=== PATIENT | female | born 2000 | race American Indian/Alaskan Native ===

== ENCOUNTER 2018-06-19 10:06 | Emergency (ER) | payer BC, OTHER ==
[2018-06-19 10:18] VITALS: BP 128/71
[2018-06-19 12:58] LABS: Bacteria,Urine 1+ /HPF (Negative); Bilirubin,Urine NEG (Negative); Blood,Urine MOD (Negative); Color,Urine Yellow (Yellow); Mucus,Urine 3+ /HPF; Protein,Urine <15 mg/dL mg/dL (Negative)
[2018-06-19 12:59] LABS: HCG Qualitative,Urine Negative (Negative)
[2018-06-19] MEDS ORDERED: IBUPROFEN PO ONE (13:03)
[2018-06-19] MEDS ORDERED: BACTRIM DS PO ONE (13:13)
--- NOTE | 2018-06-19 13:18 | Emergency Department Report ---
ED Dysuria HPI - HPI Chief Complaint: Headache Stated Complaint: HEADACHE/LOSS OF APPETITE Time Seen by Provider: 06/19/18 12:37 Duration: 3 Days Severity: Mild Symptoms: Dysuria: No, Frequency: Yes, Suprapubic Pain: No, Flank Pain: No, Fever: No, Hematuria: No, Abdominal Pain: No, Previous UTI's: No Other History: Patient is a 18-year-old -[place] female who comes into the ER today complaining of intermittent headaches off and on for a couple weeks. She also reports a decreased appetite for a couple days. She is ambulatory and nontoxic. She denies any fever. No nausea vomiting or diarrhea. Last menstrual cycle was last week. She is on no medicines and has no allergies. ED Review of Systems ROS: Stated complaint: HEADACHE/LOSS OF APPETITE Other details as noted in HPI Comment: All other systems reviewed and negative Eyes: denies: eye pain ENT: denies: throat pain Respiratory: denies: cough Cardiovascular: denies: chest pain Endocrine: denies: excessive sweating Gastrointestinal: other (decreased appetite). denies: as per HPI, abdominal pain Genitourinary: urgency, other (not concerned for sti; lmp last week). denies: dysuria, frequency, hematuria, discharge, abnormal menses, dyspareunia Musculoskeletal: denies: back pain Skin: denies: lesions Neurological: as per HPI, headache Psychiatric: denies: anxiety Hematological/Lymphatic: denies: easy bleeding ED Past Medical Hx - Past Medical History Previous Medical History?: No - Surgical History Past Surgical History?: No - Social History Smoking Status: Never Smoker Substance Use Type: None - Medications Home Medications: Home Medications Medication Instructions Recorded Confirmed Last Taken Type Sulfamethoxazole/Trimethoprim 1 each PO BID #6 tablet 06/19/18 Unknown Rx [Bactrim Ds Tablet] Dysuria Exam - Exam General: Vital signs noted. No distress. Alert and acting appropriately. Exam: Yes Moist Mucous Membranes, No CVA Tenderness, No Abdominal Tenderness, No Rigidity or Guarding Exam: Patient is alert and oriented 4. Moves all extremities. S1-S2. Lungs clear to auscultation. Abdomen soft and nontender. No CVA tenderness. Labs: Lab Results 06/19/18 Range/Units 12:42 Urine Color Yellow (Yellow) Urine Turbidity Clear (Clear) Urine pH 6.0 (5.0-7.0) Ur Specific [place] 1.023 (1.003-1.030) Urine Protein <15 mg/dl (Negative) mg/dL Urine Glucose (UA) Neg (Negative) mg/dL Urine Ketones 20 (Negative) mg/dL Urine Blood Mod (Negative) Urine Nitrite Neg (Negative) Urine Bilirubin Neg (Negative) Urine Urobilinogen 4.0 (<2.0) mg/dL Ur Leukocyte Esterase Lg (Negative) Urine WBC (Auto) 22.0 H (0.0-6.0) /HPF Urine RBC (Auto) 1.0 (0.0-6.0) /HPF U Epithel Cells (Auto) 6.0 (0-13.0) /HPF Urine Bacteria (Auto) 1+ (Negative) /HPF Urine Mucus 3+ /HPF Urine HCG, Qual Negative (Negative) ED Course Vital Signs 06/19/18 10:12 Temperature 98.5 F Pulse Rate 75 Respiratory 20 Rate Blood Pressure 128/71 O2 Sat by Pulse 100 Oximetry ED Medical Decision Making - Medical Decision Making urine noted no concern for sti has had uti in past pt also reports hx of headaches but they have not lasted this long. no trauma she is listening to her music and playing on her phone no focal neuro def no fever ambulatory medicated dc home with follow up Lab Results 06/19/18 Range/Units 12:42 Urine Color Yellow (Yellow) Urine Turbidity Clear (Clear) Urine pH 6.0 (5.0-7.0) Ur Specific [place] 1.023 (1.003-1.030) Urine Protein <15 mg/dl (Negative) mg/dL Urine Glucose (UA) Neg (Negative) mg/dL Urine Ketones 20 (Negative) mg/dL Urine Blood Mod (Negative) Urine Nitrite Neg (Negative) Urine Bilirubin Neg (Negative) Urine Urobilinogen 4.0 (<2.0) mg/dL Ur Leukocyte Esterase Lg (Negative) Urine WBC (Auto) 22.0 H (0.0-6.0) /HPF Urine RBC (Auto) 1.0 (0.0-6.0) /HPF U Epithel Cells (Auto) 6.0 (0-13.0) /HPF Urine Bacteria (Auto) 1+ (Negative) /HPF Urine Mucus 3+ /HPF Urine HCG, Qual Negative (Negative) - Differential Diagnosis ro Critical care attestation.: If time is entered above; I have spent that time in minutes in the direct care of this critically ill patient, excluding procedure time. ED Disposition Clinical Impression: UTI (urinary tract infection), Headache Disposition: TO HOME OR SELFCARE Is pt being admited?: No Does the pt Need Aspirin: No Condition: Stable Instructions: Urinary Tract Infection in Women (ED), Acute Headache (ED) Additional Instructions: Hydrate well with water. you should be drinking 2 gallons a day. Urinate after sex. Motrin or Tylenol for pain. Take antibiotic as prescribed today Follow-up with PCP when you complete her antibiotics. So that we can be sure the infection is gone away. A referral has been given the low Prescriptions: Sulfamethoxazole/Trimethoprim [Bactrim Ds Tablet] 1 each PO BID #6 tablet Referrals: PRIMARY CAREMD [Primary Care Provider] - 3-5 Days CHACORTA MONTIEL MD [Staff Physician] - 3-5 Days Time of Disposition: 13:16
== END 2018-06-19 13:37 | disposition home or self-care (01) ==
LOC: ED 10:06
DX: N39.0 Urinary tract infection, site not specified (principal); R51 Headache
CPT/HCPCS: 81001; 81025; 99283

== ENCOUNTER 2018-08-30 18:15 | Emergency (ER) | payer BC, OTHER ==
[2018-08-30 18:32] VITALS: BP 129/73
--- NOTE | 2018-08-30 18:32 | Emergency Department Report ---
Blank Doc - Documentation Documentation: This is a 18-year-old female that presents with generalized weakness and dizzi ness. Also has some dry cough. This initial assessment/diagnostic orders/clinical plan/treatment(s) is/are subject to change based on patient's health status, clinical progression and re- assessment by fellow clinical providers in the ED. Further treatment and workup at subsequent clinical providers discretion. Patient/guardians urged not to elope from the ED as their condition may be serious if not clinically assessed and managed. Initial orders include: 1- Patient sent to [facility] for further evaluation and treatment 2- labs 3- CXR
[2018-08-30 19:31] LABS: Basophils % (Auto) 0.3 % (0.0-1.8); Eosinophils % (Auto) 0.4 % (0.0-4.3); Hematocrit 36.1 % (30.3-42.9); Hemoglobin 12.7 gm/dl (10.1-14.3); Lymphocytes # (Auto) 1.8 K/mm3 (1.2-5.4); Mean Corpuscular HGB Conc 35 % (30-34); Mean Corpuscular Volume 89 fl (79-97); Monocytes # (Auto) 0.7 K/mm3 (0.0-0.8); Monocytes % (Auto) 6.8 % (0.0-7.3); Platelet Count 305 K/mm3 (140-440); Red Blood Count 4.06 M/mm3 (3.65-5.03); Red Cell Distribution Width 15.5 % (13.2-15.2)
[2018-08-30 19:47] LABS: BUN/Creatinine Ratio 18; Blood Urea Nitrogen 11 mg/dL (7-17); Hemolysis Index 22
--- NOTE | 2018-08-30 21:48 | XRay Report ---
PROCEDURE: XR CHEST ROUTINE 2V TECHNIQUE: PA and lateral chest radiographs were obtained. HISTORY: cough COMPARISONS: None. FINDINGS: Heart: Normal. Mediastinum/Vessels: Normal. Lungs/Pleural space: Normal. Bony thorax: Moderate degree levoscoliosis is noted. IMPRESSION: No acute abnormality. This document is electronically signed by Adalberto Murphy MD., August 30 2018 09:46:21 PM ET
--- NOTE | 2018-08-30 22:41 | Emergency Department Report ---
- General Chief Complaint: Upper Respiratory Infection Stated Complaint: DIZZY/LIGHTHEADED/WEAK/BODY ACHE Time Seen by Provider: 08/30/18 18:31 Source: patient Mode of arrival: Ambulatory Limitations: No Limitations - History of Present Illness Initial Comments: Pt is a 18 yo female who presents to the ED with c/o chills that began earlier today. She has associated generalized body aches, light-headedness, ROSALES, mild sore throat, rhinorrhea, and congestion. She denies any cough, fever, sick contacts. She states she took tylenol severe cold and flu without much relief. She denies any PMHx. - Related Data Previous Rx's Medication Instructions Recorded Last Taken Type Fluticasone [Flonase] 1 spray NS QDAY #1 bottle 08/30/18 Unknown Rx guaiFENesin [Mucinex] 600 mg PO BID #14 tab.er.12h 08/30/18 Unknown Rx Allergies Allergy/AdvReac Type Severity Reaction Status Date / Time No Known Allergies Allergy Unverified 06/19/18 10:18 ED Review of Systems ROS: Stated complaint: DIZZY/LIGHTHEADED/WEAK/BODY ACHE Other details as noted in HPI Comment: All other systems reviewed and negative ED Past Medical Hx - Past Medical History Previous Medical History?: No - Surgical History Past Surgical History?: No - Social History Smoking Status: Never Smoker Substance Use Type: None - Medications Home Medications: Home Medications Medication Instructions Recorded Confirmed Last Taken Type Fluticasone [Flonase] 1 spray NS QDAY #1 bottle 08/30/18 Unknown Rx guaiFENesin [Mucinex] 600 mg PO BID #14 tab.er.12h 08/30/18 Unknown Rx ED Physical Exam - General Limitations: No Limitations General appearance: alert, in no apparent distress - Head Head exam: Present: atraumatic, normocephalic - Eye Eye exam: Present: normal appearance - ENT ENT exam: Present: normal orophraynx, mucous membranes moist, other (no posterior oropharynx erythema or exudates, mild edema and erythema of the nasal turbinates, no sinus tenderness to papation ) - Neck Neck exam: Present: normal inspection. Absent: tenderness, meningismus - Respiratory Respiratory exam: Present: normal lung sounds bilaterally. Absent: respiratory distress, wheezes, rales, rhonchi, stridor, accessory muscle use, decreased breath sounds, prolonged expiratory - Cardiovascular Cardiovascular Exam: Present: regular rate, normal rhythm, normal heart sounds. Absent: systolic murmur, rubs, gallop - Neurological Exam Neurological exam: Present: alert, oriented X3 - Psychiatric Psychiatric exam: Present: normal affect, normal mood - Skin Skin exam: Present: warm, dry, intact ED Course Vital Signs 08/30/18 18:31 Temperature 98.3 F Pulse Rate 73 Respiratory 18 Rate Blood Pressure 129/73 O2 Sat by Pulse 100 Oximetry ED Medical Decision Making - Lab Data Result diagrams: 08/30/18 19:06 08/30/18 19:06 Lab Results 08/30/18 08/30/18 08/30/18 Range/Units 19:06 19:06 19:06 WBC 10.2 (4.5-11.0) K/mm3 RBC 4.06 (3.65-5.03) M/mm3 Hgb 12.7 (10.1-14.3) gm/dl Hct 36.1 (30.3-42.9) % MCV 89 (79-97) fl MCH 31 (28-32) pg MCHC 35 H (30-34) % RDW 15.5 H (13.2-15.2) % Plt Count 305 (140-440) K/mm3 Lymph % (Auto) 18.0 (13.4-35.0) % [place] % (Auto) 6.8 (0.0-7.3) % Eos % (Auto) 0.4 (0.0-4.3) % Baso % (Auto) 0.3 (0.0-1.8) % Lymph # 1.8 (1.2-5.4) K/mm3 [place] # 0.7 (0.0-0.8) K/mm3 Eos # 0.0 (0.0-0.4) K/mm3 Baso # 0.0 (0.0-0.1) K/mm3 Seg Neutrophils % 74.5 H (40.0-70.0) % Seg Neutrophils # 7.6 (1.8-7.7) K/mm3 Sodium 140 (137-145) mmol/L Potassium 4.1 (3.6-5.0) mmol/L Chloride 101.7 (98-107) mmol/L Carbon Dioxide 27 (22-30) mmol/L Anion Gap 15 mmol/L BUN 11 (7-17) mg/dL Creatinine 0.6 L (0.7-1.2) mg/dL Estimated GFR > 60 ml/min BUN/Creatinine Ratio 18 % Glucose 91 (65-100) mg/dL Calcium 10.0 (8.4-10.2) mg/dL HCG, Qual Negative (Negative) - Radiology Data Radiology results: report reviewed PROCEDURE: XR CHEST ROUTINE 2V TECHNIQUE: PA and lateral chest radiographs were obtained. HISTORY: cough COMPARISONS: None. FINDINGS: Heart: Normal. Mediastinum/Vessels: Normal. Lungs/Pleural space: Normal. Bony thorax: Moderate degree levoscoliosis is noted. IMPRESSION: No acute abnormality. This document is electronically signed by Adalberto Murphy MD., August 30 2018 09:46:21 PM ET - Medical Decision Making Pt is a 18 yo female who presents to the ED with c/o chills that began earlier today. She has associated generalized body aches, light-headedness, ROSALES, mild sore throat, rhinorrhea, and congestion. She denies any cough, fever, sick contacts. She states she took tylenol severe cold and flu without much relief. She denies any PMHx. CXR with no acute process. rapid influenza is negative. VSS. Pt symptoms consistent with URI. Will tx patient symptomatically. Advised to be seen by PCP in the next 2-3 days. Discussed return to the ED for any new or worsening symptoms. - Differential Diagnosis URI, Influenza, Viral syndrome Critical care attestation.: If time is entered above; I have spent that time in minutes in the direct care of this critically ill patient, excluding procedure time. ED Disposition Clinical Impression: Upper respiratory infection Qualifiers: URI type: unspecified URI Qualified Code(s): J06.9 - Acute upper respiratory infection, unspecified Disposition: DC-01 TO HOME OR SELFCARE Is pt being admited?: No Does the pt Need Aspirin: No Condition: Stable Instructions: Upper Respiratory Infection (ED) Additional Instructions: Follow up with your primary care doctor in the next 2-3 days. Take all medication as prescribed. Continue to drink plenty of fluids. Take ibuprofen/tylenol for body aches/headache. Return to the emergency room for any new or worsening symptoms. Prescriptions: Fluticasone [Flonase] 1 spray NS QDAY #1 bottle guaiFENesin [Mucinex] 600 mg PO BID #14 tab.er.12h Referrals: WDAE MEMBRENO MD [Primary Care Provider] - 2-3 Days Forms: Accompanied Note, Work/School Release Form(ED) Time of Disposition: 23:13 Print Language: CONGOLESE
== END 2018-08-30 23:23 | disposition home or self-care (01) ==
LOC: ED 18:15
DX: J06.9 Acute upper respiratory infection, unspecified (principal)
CPT/HCPCS: 36415; 71046; 80048; 84703; 85025; 87400

== ENCOUNTER 2019-03-02 17:04 | Emergency (ER) | payer BC ==
--- NOTE | 2019-03-02 17:30 | Event Note ---
ED Screening Note Date of service: 03/02/19 Time: 17:27 ED Screening Note: This is a 18 y.o. F. that presents to the ER with headache for 4 days. Reports a history of migraines. She have not taken anything for symptomatic relief. This initial assessment/diagnostic orders/clinical plan/treatment(s) is/are subject to change based on patients health status, clinical progression and re- assessment by fellow clinical providers in the ED. Further treatment and workup at subsequent clinical providers discretion. Patient/guardian urged not to elope from the ED as their condition may be serious if not clinically assessed and managed. Initial orders include:
[2019-03-02] MEDS ORDERED: diphenhydrAMINE 50 MG/ML VIAL IV ONE (17:58)
[2019-03-02] MEDS ORDERED: METOCLOPRAMIDE 10 MG/2 ML INJ IV ONE (17:58)
[2019-03-02] MEDS ORDERED: SODIUM CHLORIDE 0.9% 1000 ML 1,000 ML IV ONE (17:58)
[2019-03-02] MEDS ORDERED: KETOROLAC 30 MG/1 ML INJ IV ONE (17:58)
--- NOTE | 2019-03-02 18:54 | Emergency Department Report ---
ED Headache HPI - General Chief Complaint: Headache Stated Complaint: DIZZY/FEVER/HARD TO FOCUS Time Seen by Provider: 03/02/19 17:27 - History of Present Illness Initial Comments: Patient is a 18-year-old female who presents to emergency room with complaints of a frontal headache that began 4 days ago. Patient states she has associated photophobia and lightheadedness when the headache is uncomfortable. She denies any numbness, weakness, vision changes, fever, nausea, vomiting, diarrhea, neck pain, syncope. Patient states she has a history of headaches and usually takes Aleve or ibuprofen and her symptoms resolve after. Patient has not taken anything at all for this headache. She states her last mental cycle was February 10. Allergies/Adverse Reactions: Allergies No Known Allergies Allergy (Unverified 06/19/18 10:18) Home Medications: Ambulatory Orders Fluticasone [Flonase] 1 spray NS QDAY #1 bottle 08/30/18 guaiFENesin [Mucinex] 600 mg PO BID #14 tab.er.12h 08/30/18 Butalb/Acetaminophen/Caffeine [Fioricet 50-300-40 mg CAP] 1 cap PO Q8HR PRN #10 cap 03/02/19 ED Review of Systems ROS: Stated complaint: DIZZY/FEVER/HARD TO FOCUS Other details as noted in HPI Comment: All other systems reviewed and negative ED Past Medical Hx - Past Medical History Previous Medical History?: No - Surgical History Past Surgical History?: No - Social History Smoking Status: Never Smoker Substance Use Type: None - Medications Home Medications: Home Medications Medication Instructions Recorded Confirmed Last Taken Type Fluticasone [Flonase] 1 spray NS QDAY #1 bottle 08/30/18 Unknown Rx guaiFENesin [Mucinex] 600 mg PO BID #14 tab.er.12h 08/30/18 Unknown Rx Butalb/Acetaminophen/Caffeine 1 cap PO Q8HR PRN #10 cap 03/02/19 Unknown Rx [Fioricet 50-300-40 mg CAP] ED Physical Exam - General Limitations: No Limitations General appearance: alert, in no apparent distress - Head Head exam: Present: atraumatic, normocephalic - Eye Eye exam: Present: normal appearance, PERRL, EOMI. Absent: nystagmus, periorbital swelling, periorbital tenderness - ENT ENT exam: Present: mucous membranes moist, other (no sinus TTP) - Neck Neck exam: Present: normal inspection, full ROM. Absent: tenderness, meningismus - Respiratory Respiratory exam: Present: normal lung sounds bilaterally. Absent: respiratory distress, wheezes, rales, rhonchi, stridor, chest wall tenderness, accessory muscle use, decreased breath sounds, prolonged expiratory - Cardiovascular Cardiovascular Exam: Present: regular rate, normal rhythm, normal heart sounds. 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 Patient states she has associated photophobia and lightheadedness when the headache is uncomfortable. She denies any numbness, weakness, vision changes, fever, nausea, vomiting, diarrhea, neck pain, syncope. Patient states she has a history of headaches and usually takes Aleve or ibuprofen and her symptoms resolve after. Patient has not taken anything at all for this headache. She states her last mental cycle was February 10. VSS. on exam: PERRL, EOMI, no neuro deficits, no meningeal signs. pt given 1L of NS, reglan, benadryl, and toradol. went to rexamine pt and she was resting comfortably. pt states that her ROSALES has improved. pt given prescription for fioricet. Advised patient to take medication as prescribed as needed. Discussed the patient to please follow up with a primary care doctor in the next 2-3 days. Return to the emergency room for any new or worsening symptoms. - Differential Diagnosis migraine, tension ROSALES, cluster ROSALES, sinusitis Critical care attestation.: If time is entered above; I have spent that time in minutes in the direct care of this critically ill patient, excluding procedure time. ED Disposition Clinical Impression: Headache Qualifiers: Headache type: unspecified Headache chronicity pattern: acute headache Intractability: not intractable Qualified Code(s): R51 - Headache Disposition: DC-01 TO HOME OR SELFCARE Is pt being admited?: No Does the pt Need Aspirin: No Condition: Stable Instructions: Acute Headache (ED) Additional Instructions: take medication as prescribed as needed. Discussed the patient to please follow up with a primary care doctor in the next 2-3 days. Return to the emergency room for any new or worsening symptoms. Prescriptions: Butalb/Acetaminophen/Caffeine [Fioricet 50-300-40 mg CAP] 1 cap PO Q8HR PRN #10 cap PRN Reason: Headache Referrals: KIRA WELCH MD [Staff Physician] - 2-3 Days [facility] [Provider Group] - 2-3 Days Time of Disposition: 19:11 Print Language: PORTUGUESE
[2019-03-02 19:29] VITALS: BP 116/59
== END 2019-03-02 19:45 | disposition home or self-care (01) ==
LOC: ED 17:04
DX: R51 Headache (principal); R42 Dizziness and giddiness
CPT/HCPCS: 96361; 96374; 96375; 99282; J1200; J1885; J2765; J7030

== ENCOUNTER 2019-05-12 14:18 | Emergency (ER) | payer BC ==
[2019-05-12 15:00] VITALS: BP 135/83
--- NOTE | 2019-05-12 15:02 | Event Note ---
ED Screening Note ED Screening Note: pt presents with a left sided ROSALES that began three days ago states she has been taking mucinex and tylenol but continues to have a headache no PMHx no allergies to meds This initial assessment/diagnostic orders/clinical plan/treatment(s) is/are subject to change based on patients health status, clinical progression and re- assessment by fellow clinical providers in the ED. Further treatment and workup at subsequent clinical providers discretion. Patient/guardian urged not to elope from the ED as their condition may be serious if not clinically assessed and managed.
--- NOTE | 2019-05-12 17:11 | Emergency Department Report ---
- General Chief Complaint: Upper Respiratory Infection Stated Complaint: HEADACHE/SORE THROAT Time Seen by Provider: 05/12/19 15:00 Source: patient Mode of arrival: Ambulatory Limitations: No Limitations - History of Present Illness MD Complaint: cough, sore throat, rhinorrhea, nasal congestion -: Gradual, days(s) (2) Severity: mild, moderate Quality: dull Consistency: constant Worsens With: nothing Associated Symptoms: chills, rhinorrhea, nasal congestion, sore throat, cough, nausea. denies: confusion, right sweats, weight loss - Related Data Previous Rx's Medication Instructions Recorded Last Taken Type Fluticasone [Flonase] 1 spray NS QDAY #1 bottle 08/30/18 Unknown Rx guaiFENesin [Mucinex] 600 mg PO BID #14 tab.er.12h 08/30/18 Unknown Rx Butalb/Acetaminophen/Caffeine 1 cap PO Q8HR PRN #10 cap 03/02/19 Unknown Rx [Fioricet 50-300-40 mg CAP] Ondansetron [Zofran ODT TAB] 8 mg PO Q12HR #14 tab.rapdis 05/12/19 Unknown Rx guaiFENesin/CODEINE [Robitussin AC] 5 ml PO Q6H PRN #120 ml 05/12/19 Unknown Rx predniSONE [Deltasone] 50 mg PO QDAY #5 tab 05/12/19 Unknown Rx Allergies Allergy/AdvReac Type Severity Reaction Status Date / Time No Known Allergies Allergy Unverified 06/19/18 10:18 ED Review of Systems ROS: Stated complaint: HEADACHE/SORE THROAT Other details as noted in HPI Comment: All other systems reviewed and negative ED Past Medical Hx - Past Medical History Previous Medical History?: No - Surgical History Past Surgical History?: No - Social History Smoking Status: Never Smoker Substance Use Type: None - Medications Home Medications: Home Medications Medication Instructions Recorded Confirmed Last Taken Type Fluticasone [Flonase] 1 spray NS QDAY #1 bottle 08/30/18 Unknown Rx guaiFENesin [Mucinex] 600 mg PO BID #14 tab.er.12h 08/30/18 Unknown Rx Butalb/Acetaminophen/Caffeine 1 cap PO Q8HR PRN #10 cap 03/02/19 Unknown Rx [Fioricet 50-300-40 mg CAP] Ondansetron [Zofran ODT TAB] 8 mg PO Q12HR #14 tab.rapdis 05/12/19 Unknown Rx guaiFENesin/CODEINE [Robitussin AC] 5 ml PO Q6H PRN #120 ml 05/12/19 Unknown Rx predniSONE [Deltasone] 50 mg PO QDAY #5 tab 05/12/19 Unknown Rx ED Physical Exam - General Limitations: No Limitations General appearance: alert, in no apparent distress - Head Head exam: Present: atraumatic, normocephalic - Eye Eye exam: Present: normal appearance, PERRL, EOMI Pupils: Present: normal accommodation - ENT ENT exam: Present: normal exam, mucous membranes moist, TM's normal bilaterally - Neck Neck exam: Present: normal inspection - Respiratory Respiratory exam: Present: normal lung sounds bilaterally. Absent: respiratory distress, wheezes, rales, accessory muscle use, decreased breath sounds - Cardiovascular Cardiovascular Exam: Present: regular rate, normal rhythm. Absent: tachycardia, systolic murmur, diastolic murmur, rubs, gallop - GI/Abdominal GI/Abdominal exam: Present: soft, normal bowel sounds - Extremities Exam Extremities exam: Present: normal inspection - Back Exam Back exam: Present: normal inspection. Absent: CVA tenderness (R), CVA tenderness (L) - Neurological Exam Neurological exam: Present: alert, oriented X3, CN II-XII intact, normal gait - Psychiatric Psychiatric exam: Present: normal affect, normal mood. Absent: anxious, flat affect - Skin Skin exam: Present: warm, dry, intact, normal color. Absent: rash, cyanosis, diaphoretic ED Course Vital Signs 05/12/19 14:58 Temperature 99.1 F Pulse Rate 81 Respiratory 20 Rate Blood Pressure 135/83 O2 Sat by Pulse 99 Oximetry Critical care attestation.: If time is entered above; I have spent that time in minutes in the direct care of this critically ill patient, excluding procedure time. ED Disposition Clinical Impression: URI (upper respiratory infection), Cephalgia Disposition: DC- TO HOME OR SELFCARE Is pt being admited?: No Does the pt Need Aspirin: No Condition: Stable Instructions: Upper Respiratory Infection (ED), Cold Symptoms (ED) Prescriptions: predniSONE [Deltasone] 50 mg PO QDAY #5 tab guaiFENesin/CODEINE [Robitussin AC] 5 ml PO Q6H PRN #120 ml PRN Reason: Cough Ondansetron [Zofran ODT TAB] 8 mg PO Q12HR #14 tab.megdis Referrals: NATHANAEL MIXON MD [Staff Physician] - 3-5 Days
== END 2019-05-12 17:12 | disposition home or self-care (01) ==
LOC: ED 14:18
DX: J06.9 Acute upper respiratory infection, unspecified (principal); R51 Headache; Z79.899 Other long term (current) drug therapy
CPT/HCPCS: 99281

== ENCOUNTER 2020-11-10 16:19 | Outpatient (CLI) | payer BC | END 2020-11-10 16:20 | disposition home or self-care (01) | LOC: LAB 16:19 | PROVIDERS: ATTEND Specialist | DX: G25.2 Other specified forms of tremor (principal) | CPT/HCPCS: 36415; 84443; 84479; 84480 ==